=== PATIENT | female | born 1965 | race Caucasian/White ===

== ENCOUNTER 2020-07-05 09:50 | Emergency (ER) | payer OTHER ==
[~2020-07-05] VITALS: Ht 170.2 cm; Wt 81.7 kg
[~2020-07-05 09:50] MED LIST: ALBUTEROL INHAL17 GM IH; AVELOX400 MG PO; BENADRYL25 MG PO; CLARITIN-D 12 H1 TA1 PO; DIFLUCAN PO; FIORICET 50-321 EACH PO; GUAIFENESIN/COD10 ML PO; ISENTRESS100 MG PO; LEVOTHYROXIN0.088 MG PO; LIDOCAINE VISC100 ML MM; NEFAZODONE HCL250 MG PO; NORCO 5-325 TA1 EACH PO; PREDNISONE 10 M10 M1 PO; PREDNISONE 20 M20 MG PO; PROAIR HFA8.5 GM INH; PROVENTIL HFA6.7 G1 INH; RALTEGRAVIR; SYNTHROID; SYNTHROID100 MCG PO; TESSALON PERLE100 MG PO; TRIAMCINOLONE A15 G1 TP; TRUVADA1 EAC1; TRUVADA1 EAC1 PO; ULTRAM 50MG TAB50 MG PO; XANAX 0.25 MG0.25 MG PO; XANAX 0.5 MG0.5 M1 PO; ZPAK PO
[2020-07-05 11:11] LABS: HEMATOCRIT 39.7 % (37.0-47.0); HEMOGLOBIN 13.1 gm/dL (12.0-15.0); MCH 28.7 pg (26.0-34.0); PLATELET COUNT 327 thou/uL (150-400); RBC 4.56 mil/uL (4.20-5.00); WBC 6.8 thou/uL (4.0-11.0)
[2020-07-05 11:33] LABS: ANION GAP 9 mmol/L (7-16); BUN 12 mg/dL (7-18); CHLORIDE 105 mmol/L (98-107); CO2 28 mmol/L (21-32); CREATININE 0.9 mg/dL (0.6-1.0); GLUCOSE 115 mg/dL (74-106); SODIUM 142 mmol/L (136-145)
[2020-07-05 11:42] LABS: TROPONIN-I <0.06 ng/mL (<0.06)
--- NOTE | 2020-07-05 11:44 | EKG ---
[address] [address] ELECTROCARDIOGRAM REPORT Name: DAIJA FRYSKIP COLLADO Room #: REG Yong#: [id number] Admission: 07/05/20 Attend Phys: Discharge: Date of : 63 Report #: [id number] [facility] ED Test Date: 2020-07-05 Test Time: 10:11:22 Pat Name: TRINY FRY Department: Room: Gender: F Cpr Instructor: anneliese : 1965 Requested By: Adry Saleh Order Number: [id number] MD: Siva Marcos Measurements Intervals [place] Rate: 86 P: 79 TN: 151 QRS: 28 QRSD: 98 T: 31 QT: 357 QTc: 427 Interpretive Statements Sinus rhythm Compared to ECG 09/25/2013 06:07:02 No significant changes Electronically Signed On 07-05-2020 11:44:32 CHANNEL SPECIALIST by Siva Marcos [email or web address] <ELECTRONICALLY SIGNED> By: Siva Marcos MD, [facility] 07/05/20 1144 1011 1011 Siva Marcos MD, FACC /EPI
[2020-07-05] MEDS ORDERED: DOXYCYCLINE 10100 MG PO (11:51)
[2020-07-05] MEDS ORDERED: PROAIR HFA8.5 GM INH (11:51)
[2020-07-05] MEDS ORDERED: PREDNISONE 10 M10 MG PO (11:51)
[2020-07-05 12:36] VITALS: BP 138/65
[2020-07-05 12:49] LABS: ABSOLUTE NEUTROPHILS 3.3 thou/uL (1.4-8.2); PLATELET ESTIMATE NORMAL
== END 2020-07-05 12:36 | disposition home or self-care (01) ==
LOC: ER 09:50
PROVIDERS: Emergency Medicine
DX: J45.901 Unspecified asthma with (acute) exacerbation (principal); R21 Rash and other nonspecific skin eruption; E03.9 Hypothyroidism, unspecified; Z79.899 Other long term (current) drug therapy; Z88.0 Allergy status to penicillin; Z88.2 Allergy status to sulfonamides; Z88.8 Allergy status to other drugs, medicaments and biological substances; Z20.822 Contact with and (suspected) exposure to COVID-19

== ENCOUNTER 2020-08-10 18:24 | Emergency (ER) | payer OTHER ==
[~2020-08-10] VITALS: Ht 167.6 cm; Wt 93.0 kg
[~2020-08-10 18:24] MED LIST changes: +DOXYCYCLINE 10100 MG PO; +PREDNISONE 10 M10 MG PO
[2020-08-10 19:34] LABS: ABSOLUTE NEUTROPHILS 5.2 thou/uL (1.4-8.2); BASOPHILS 1.1 % (0.0-2.0); EOSINOPHILS 14.1 % (0.0-3.0); HEMATOCRIT 39.5 % (37.0-47.0); HEMOGLOBIN 13.1 gm/dL (12.0-15.0); LYMPHOCYTES 22.7 % (24.0-44.0); MCH 28.8 pg (26.0-34.0); MCHC 33.2 g/dL (28.0-37.0); MONOCYTES 10.5 % (1.0-8.0); PLATELET COUNT 315 thou/uL (150-400); POLYS 51.6 % (36.0-66.0); RBC 4.54 mil/uL (4.20-5.00); RDW 14.9 % (10.5-14.5); WBC 10.1 thou/uL (4.0-11.0)
[2020-08-10 19:38] LABS: ANION GAP 10 mmol/L (7-16); BUN 12 mg/dL (7-18); CALCIUM 9.5 mg/dL (8.5-10.1); CHLORIDE 106 mmol/L (98-107); CO2 25 mmol/L (21-32); GLUCOSE 133 mg/dL (74-106); POTASSIUM 4.2 mmol/L (3.5-5.1); SODIUM 141 mmol/L (136-145)
[2020-08-10 19:48] LABS: ALBUMIN 3.8 g/dL (3.4-5.0); SGOT 22 U/L (15-37); SGPT 23 U/L (14-59); TOTAL BILIRUBIN 0.5 mg/dL (0.2-1.0); TOTAL PROTEIN 7.9 g/dL (6.4-8.2); TROPONIN-I <0.06 ng/mL (<0.06)
[2020-08-10] MEDS ORDERED: PREDNISONE 10 M10 M1 PO (21:23)
[2020-08-10] MEDS ORDERED: ZPAK PO (21:23)
[2020-08-10] MEDS ORDERED: PROAIR HFA8.5 GM INH (21:23)
[2020-08-10 21:33] VITALS: BP 127/66
--- NOTE | 2020-08-11 07:02 | EKG ---
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 08/11/20 0702 1859 1859 Siva Marcos MD, FACC /EPI
== END 2020-08-10 21:36 | disposition home or self-care (01) ==
LOC: ER 18:24
PROVIDERS: Physician Assistant
DX: J45.901 Unspecified asthma with (acute) exacerbation (principal); E03.9 Hypothyroidism, unspecified; Z21 Asymptomatic human immunodeficiency virus [HIV] infection status; Z79.899 Other long term (current) drug therapy; Z88.0 Allergy status to penicillin; Z88.2 Allergy status to sulfonamides; Z88.8 Allergy status to other drugs, medicaments and biological substances

== ENCOUNTER 2020-09-09 20:15 | Emergency (ER) | payer OTHER ==
[~2020-09-09] VITALS: Ht 167.6 cm; Wt 90.7 kg
[2020-09-09 21:03] LABS: HEMATOCRIT 41.4 % (37.0-47.0); HEMOGLOBIN 13.6 gm/dL (12.0-15.0); MCH 29.1 pg (26.0-34.0); MCHC 32.9 g/dL (28.0-37.0); MCV 88.7 fL (80.0-100.0); RBC 4.67 mil/uL (4.20-5.00); RDW 15.8 % (10.5-14.5); WBC 5.6 thou/uL (4.0-11.0)
[2020-09-09 21:13] LABS: CALCIUM 9.6 mg/dL (8.5-10.1); CREATININE 1.1 mg/dL (0.6-1.0); POTASSIUM 3.8 mmol/L (3.5-5.1)
[2020-09-09 21:20] LABS: TOTAL BILIRUBIN 0.4 mg/dL (0.2-1.0); TOTAL PROTEIN 8.2 g/dL (6.4-8.2)
[2020-09-09] MEDS ORDERED: IPRAT-ALBUT 0.5-3 ML NEB ×2 (21:21→22:47)
[2020-09-09] MEDS ORDERED: PREDNISONE 10 M10 M1 PO ×2 (21:21→22:47)
[2020-09-09] MEDS ORDERED: PULMICORT FLE180 MCG INH ×2 (21:22→22:47)
[2020-09-09 23:15] VITALS: BP 130/59
[2020-09-10] MEDS ORDERED: PULMICORT FLE180 MCG INH ×2 (12:04→17:25)
== END 2020-09-09 23:16 | disposition home or self-care (01) ==
LOC: ER 20:15
PROVIDERS: Nurse Practitioner Family
DX: J45.901 Unspecified asthma with (acute) exacerbation (principal); E03.9 Hypothyroidism, unspecified; Z88.0 Allergy status to penicillin; Z88.1 Allergy status to other antibiotic agents; Z88.8 Allergy status to other drugs, medicaments and biological substances; Z79.899 Other long term (current) drug therapy

== ENCOUNTER 2020-10-05 09:44 | Emergency (ER) | payer OTHER ==
[~2020-10-05] VITALS: Ht 170.2 cm; Wt 90.7 kg
[~2020-10-05 09:44] MED LIST changes: +IPRAT-ALBUT 0.5-3 ML NEB; +PULMICORT FLE180 MCG INH
[2020-10-05 11:00] LABS: BE(vivo) -1.7 mmol/L (-2 to +3); HCO3 22.5 mmol/L (22.0-26.0); PCO2 36.6 mmHg (35.0-45.0); PO2 63.7 mmHg (80.0-100.0); pH 7.407 (7.360-7.450); sO2 92.6 % (92.0-98.0)
[2020-10-05 11:18] LABS: RBC 4.48 mil/uL (4.20-5.00)
[2020-10-05 11:20] LABS: HEMATOCRIT 39.7 % (37.0-47.0); HEMOGLOBIN 13.2 gm/dL (12.0-15.0); MCH 29.5 pg (26.0-34.0); MCHC 33.3 g/dL (28.0-37.0); MCV 88.5 fL (80.0-100.0); PLATELET COUNT 270 thou/uL (150-400); RDW 16.1 % (10.5-14.5); WBC 6.6 thou/uL (4.0-11.0)
[2020-10-05 11:27] LABS: CALCIUM 9.4 mg/dL (8.5-10.1); POTASSIUM 3.9 mmol/L (3.5-5.1)
[2020-10-05 11:33] LABS: ALBUMIN 3.8 g/dL (3.4-5.0); TOTAL BILIRUBIN 0.5 mg/dL (0.2-1.0); TOTAL PROTEIN 7.8 g/dL (6.4-8.2)
[2020-10-05 11:47] VITALS: BP 168/78
--- NOTE | 2020-10-05 13:03 | EKG ---
[place] [address] [place] [address] ELECTROCARDIOGRAM REPORT Name: LISANDRATRINY COLLADO [facility] #: [facility] [id number] Admission: 10/05/20 Attend Phys: Discharge: Date of : 63 Report #: [id number] [facility] ED Test Date: 2020-10-05 Test Time: 09:51:19 Pat Name: TRINY FRY Department: Room: Gender: F Retail Manager: SONIDO : 1965 Requested By: Angel Kendall Order Number: [id number] MD: Siva Marcos Measurements Intervals [place] Rate: 114 P: 85 [place]: 150 QRS: 74 QRSD: 81 T: 59 QT: 314 QTc: 433 Interpretive Statements Sinus tachycardia Consider right atrial enlargement Compared to ECG 08/10/2020 18:59:57 Sinus rhythm no longer present Electronically Signed On 10-05-2020 13:02:44 CDT by Siva Marcos [email or web address] <ELECTRONICALLY SIGNED> By: Siva Marcos MD, [facility] 10/05/20 1302 0951 0951 Siva Marcos MD, FACC /EPI
[2020-10-05] MEDS ORDERED: PREDNISONE 20 M20 M1 PO (13:08)
[2020-10-05] MEDS ORDERED: ZITHROMAX250 MG PO (13:08)
[2020-10-05] MEDS ORDERED: PROAIR HFA8.5 GM INH (13:08)
[2020-10-05 13:56] LABS: ANISOCYTOSIS 1+
== END 2020-10-05 13:44 | disposition home or self-care (01) ==
LOC: ER 09:44
PROVIDERS: Emergency Medicine
DX: J20.9 Acute bronchitis, unspecified (principal); Z20.822 Contact with and (suspected) exposure to COVID-19; J45.909 Unspecified asthma, uncomplicated; E03.9 Hypothyroidism, unspecified; Z21 Asymptomatic human immunodeficiency virus [HIV] infection status; Z88.0 Allergy status to penicillin; Z88.2 Allergy status to sulfonamides; Z88.8 Allergy status to other drugs, medicaments and biological substances

== ENCOUNTER 2020-10-16 12:19 | Emergency (ER) | payer OTHER ==
[~2020-10-16] VITALS: Ht 170.2 cm; Wt 90.7 kg
[~2020-10-16 12:19] MED LIST changes: +PREDNISONE 20 M20 M1 PO; +ZITHROMAX250 MG PO
[2020-10-16 12:57] LABS: ABSOLUTE NEUTROPHILS 4.3 thou/uL (1.4-8.2); BASOPHILS 0.5 % (0.0-2.0); EOSINOPHILS 15.6 % (0.0-3.0); HEMATOCRIT 41.5 % (37.0-47.0); HEMOGLOBIN 13.6 gm/dL (12.0-15.0); LYMPHOCYTES 11.9 % (24.0-44.0); MCH 29.2 pg (26.0-34.0); MCHC 32.7 g/dL (28.0-37.0); MCV 89.3 fL (80.0-100.0); MONOCYTES 9.4 % (1.0-8.0); PLATELET COUNT 377 thou/uL (150-400); POLYS 62.6 % (36.0-66.0); RBC 4.65 mil/uL (4.20-5.00); RDW 16.5 % (10.5-14.5); WBC 6.9 thou/uL (4.0-11.0)
[2020-10-16 13:04] LABS: ANION GAP 7 mmol/L (7-16); BUN 12 mg/dL (7-18); CALCIUM 9.4 mg/dL (8.5-10.1); CHLORIDE 108 mmol/L (98-107); CO2 28 mmol/L (21-32); GLUCOSE 105 mg/dL (74-106); SODIUM 143 mmol/L (136-145)
[2020-10-16 13:14] LABS: ALBUMIN 3.8 g/dL (3.4-5.0); SGOT 25 U/L (15-37); SGPT 26 U/L (14-59); TOTAL BILIRUBIN 0.4 mg/dL (0.2-1.0); TOTAL PROTEIN 7.8 g/dL (6.4-8.2); TROPONIN-I <0.06 ng/mL (<0.06)
[2020-10-16] MEDS ORDERED: MEDROLDOSEPACK PO (14:28)
[2020-10-16] MEDS ORDERED: DOXYCYCLINE 10100 MG PO (14:28)
[2020-10-16] MEDS ORDERED: CODEINE-GUAIFE120 ML PO (14:28)
[2020-10-16] MEDS ORDERED: PROAIR HFA8.5 GM INH (14:28)
[2020-10-16 14:42] VITALS: BP 142/81
--- NOTE | 2020-10-17 07:23 | EKG ---
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: makenzie : 1965 Requested By: Jose Bernstein Order Number: [id number] MD: Siva Marcos Measurements Intervals [place] Rate: 98 P: 92 [place]: 128 QRS: 66 QRSD: 139 T: 48 QT: 333 QTc: 426 Interpretive Statements Sinus rhythm Nonspecific intraventricular conduction delay Compared to ECG 10/05/2020 09:51:19 Intraventricular conduction delay now present Sinus tachycardia no longer present Electronically Signed On 10-17-2020 7:23:37 CDT by Siva Marcos [email or web address] <ELECTRONICALLY SIGNED> By: Siva Marcos MD, [facility] 10/17/20 0723 D: 06/1246 124 Siva Marcos MD, FACC /EPI
== END 2020-10-16 14:42 | disposition home or self-care (01) ==
LOC: ER 12:19
PROVIDERS: Emergency Medicine
DX: J45.909 Unspecified asthma, uncomplicated (principal); Z20.822 Contact with and (suspected) exposure to COVID-19; E03.9 Hypothyroidism, unspecified; Z88.0 Allergy status to penicillin; Z88.2 Allergy status to sulfonamides; Z88.1 Allergy status to other antibiotic agents; Z88.8 Allergy status to other drugs, medicaments and biological substances; Z87.891 Personal history of nicotine dependence

== ENCOUNTER 2020-10-30 14:09 | Emergency (ER) | payer OTHER ==
[~2020-10-30] VITALS: Ht 167.6 cm; Wt 93.0 kg
[~2020-10-30 14:09] MED LIST changes: +CODEINE-GUAIFE120 ML PO; +MEDROLDOSEPACK PO
[2020-10-30 15:01] LABS: HEMATOCRIT 39.9 % (37.0-47.0); HEMOGLOBIN 12.9 gm/dL (12.0-15.0); MCH 29.4 pg (26.0-34.0); MCHC 32.3 g/dL (28.0-37.0); MCV 90.8 fL (80.0-100.0); PLATELET COUNT 318 thou/uL (150-400); RBC 4.39 mil/uL (4.20-5.00); RDW 16.4 % (10.5-14.5); WBC 7.9 thou/uL (4.0-11.0)
[2020-10-30 15:08] LABS: ANION GAP 9 mmol/L (7-16); BUN 11 mg/dL (7-18); CALCIUM 9.4 mg/dL (8.5-10.1); CHLORIDE 110 mmol/L (98-107); CO2 25 mmol/L (21-32); CREATININE 0.9 mg/dL (0.6-1.0); GLUCOSE 91 mg/dL (74-106); POTASSIUM 4.5 mmol/L (3.5-5.1); SODIUM 144 mmol/L (136-145)
[2020-10-30 15:17] LABS: TROPONIN-I <0.06 ng/mL (<0.06)
[2020-10-30 15:33] LABS: PLATELET ESTIMATE NORMAL
[2020-10-30] MEDS ORDERED: GUAIFEN-CODEINE10 ML PO (17:06)
[2020-10-30] MEDS ORDERED: PROAIR HFA8.5 GM INH (17:06)
[2020-10-30] MEDS ORDERED: PREDNISONE 20 M20 MG PO (17:06)
[2020-10-30] MEDS ORDERED: DOXYCYCLINE 10100 MG PO (17:13)
[2020-10-30 17:25] VITALS: BP 129/65
--- NOTE | 2020-10-31 07:13 | EKG ---
[place] [address] [facility] [place] [address] ELECTROCARDIOGRAM REPORT Name: SaulTRINY COLLADO Room #: DEP Yong#: [id number] Admission: 10/30/20 Attend Phys: Discharge: 10/30/20 Date of : 63 Report #: [id number] [facility] ED Test Date: 2020-10-30 Test Time: 14:17:56 Pat Name: TRINY FRY Department: Room: Gender: F Slide Machine Tender: AVANI : 1965 Requested By: Christiano Roche Order Number: [id number] MD: Siva Marcos Measurements Intervals [place] Rate: 82 P: 79 [place]: 156 QRS: 35 QRSD: 87 T: 45 QT: 355 QTc: 415 Interpretive Statements Sinus rhythm Compared to ECG 10/16/2020 12:47:25 Intraventricular conduction delay no longer present Electronically Signed On 10-31-2020 7:13:22 CDT by Siva Marcos [email or web address] <ELECTRONICALLY SIGNED> By: Siva Marcos MD, [facility] 10/31/20 0713 1417 1417 Siva Marcos MD, FACC /EPI
== END 2020-10-30 17:28 | disposition home or self-care (01) ==
LOC: ER 14:09
PROVIDERS: Nurse Practitioner
DX: J44.1 Chronic obstructive pulmonary disease with (acute) exacerbation (principal); Z20.822 Contact with and (suspected) exposure to COVID-19; E03.9 Hypothyroidism, unspecified; Z88.0 Allergy status to penicillin; Z88.2 Allergy status to sulfonamides; Z88.1 Allergy status to other antibiotic agents; Z88.8 Allergy status to other drugs, medicaments and biological substances

== ENCOUNTER 2020-11-19 00:37 | Emergency (ER) | payer OTHER ==
[~2020-11-19] VITALS: Ht 170.2 cm; Wt 95.3 kg
[~2020-11-19 00:37] MED LIST changes: +GUAIFEN-CODEINE10 ML PO
[2020-11-19 01:25] LABS: BASOPHILS 1.3 % (0.0-2.0); EOSINOPHILS 10.6 % (0.0-3.0); HEMATOCRIT 37.5 % (37.0-47.0); HEMOGLOBIN 12.5 gm/dL (12.0-15.0); LYMPHOCYTES 20.3 % (24.0-44.0); MCH 29.6 pg (26.0-34.0); MCHC 33.4 g/dL (28.0-37.0); MCV 88.7 fL (80.0-100.0); MONOCYTES 12.2 % (1.0-8.0); PLATELET COUNT 279 thou/uL (150-400); POLYS 55.6 % (36.0-66.0); RBC 4.23 mil/uL (4.20-5.00); WBC 5.3 thou/uL (4.0-11.0)
[2020-11-19 01:26] LABS: ANION GAP 10 mmol/L (7-16); BUN 11 mg/dL (7-18); CALCIUM 9.4 mg/dL (8.5-10.1); CHLORIDE 107 mmol/L (98-107); CO2 26 mmol/L (21-32); GLUCOSE 103 mg/dL (74-106); POTASSIUM 3.8 mmol/L (3.5-5.1); SODIUM 143 mmol/L (136-145)
[2020-11-19 01:36] LABS: ALBUMIN 3.6 g/dL (3.4-5.0); SGOT 22 U/L (15-37); SGPT 25 U/L (30-65); TOTAL BILIRUBIN 0.3 mg/dL (0.2-1.0); TOTAL PROTEIN 7.5 g/dL (6.4-8.2); TROPONIN-I <0.06 ng/mL (<0.06)
[2020-11-19] MEDS ORDERED: PREDNISONE 20 M20 MG PO (03:00)
[2020-11-19] MEDS ORDERED: AZITHROMYCIN 2250 MG PO (03:00)
[2020-11-19] MEDS ORDERED: PROAIR HFA8.5 GM INH (03:03)
[2020-11-19 04:06] VITALS: BP 158/72
--- NOTE | 2020-11-20 14:28 | EKG ---
[place] [address] [address] [facility] [place] [address] ELECTROCARDIOGRAM REPORT Name: TRINY FRY TOBIAS Room #: [facility]P [facility] [id number] Admission: 11/19/20 Attend Phys: Discharge: 11/19/20 Date of : 63 Report #: [id number] [facility] ED Test Date: 2020-11-19 Test Time: 01:20:56 Pat Name: TRINY FRY Department: Room: Gender: F Ham Sawyer: : 1965 Requested By: Kota Youssef Order Number: [id number] MD: Omar Fabian Measurements Intervals [place] Rate: 102 P: 69 NM: 144 QRS: 37 QRSD: 88 T: 32 QT: 324 QTc: 423 Interpretive Statements Sinus tachycardia Otherwise no significant abnormality Compared to ECG 10/30/2020 14:17:56 No significant changes Electronically Signed On 11-20-2020 14:28:17 CDT by Omar Fabian [email or web address] <ELECTRONICALLY SIGNED> By: Omar Fabian MD, [facility] 11/20/20 1428 012 0120 Omar Fabian MD, FACC /EPI
== END 2020-11-19 04:00 | disposition home or self-care (01) ==
LOC: ER 00:37
PROVIDERS: Emergency Medicine
DX: J40 Bronchitis, not specified as acute or chronic (principal); J45.909 Unspecified asthma, uncomplicated; B34.9 Viral infection, unspecified; B20 Human immunodeficiency virus [HIV] disease; E03.9 Hypothyroidism, unspecified; F41.9 Anxiety disorder, unspecified; Z87.891 Personal history of nicotine dependence; Z20.822 Contact with and (suspected) exposure to COVID-19; Z88.1 Allergy status to other antibiotic agents; Z88.0 Allergy status to penicillin

== ENCOUNTER 2020-12-16 18:47 | Inpatient (IN) | payer OTHER ==
[~2020-12-16] VITALS: Ht 167.6 cm; Wt 97.5 kg
[~2020-12-16 18:47] MED LIST changes: +AZITHROMYCIN 2250 MG PO
[2020-12-16 18:58] VITALS: BP 159/96
[2020-12-16 20:00] LABS: ABSOLUTE NEUTROPHILS 12.1 thou/uL (1.4-8.2); BASOPHILS 0.1 % (0.0-2.0); HEMATOCRIT 40.9 % (37.0-47.0); HEMOGLOBIN 13.4 gm/dL (12.0-15.0); LYMPHOCYTES 4.4 % (24.0-44.0); MCH 29.6 pg (26.0-34.0); MCHC 32.8 g/dL (28.0-37.0); MCV 90.2 fL (80.0-100.0); MONOCYTES 4.9 % (1.0-8.0); PLATELET COUNT 363 thou/uL (150-400); POLYS 90.6 % (36.0-66.0); RBC 4.54 mil/uL (4.20-5.00); RDW 16.3 % (10.5-14.5); WBC 13.3 thou/uL (4.0-11.0)
[2020-12-16 20:04] LABS: ANION GAP 7 mmol/L (7-16); BUN 26 mg/dL (7-18); CALCIUM 9.8 mg/dL (8.5-10.1); CHLORIDE 106 mmol/L (98-107); CO2 29 mmol/L (21-32); CREATININE 1.2 mg/dL (0.6-1.0); GLUCOSE 113 mg/dL (74-106); POTASSIUM 4.7 mmol/L (3.5-5.1); SODIUM 142 mmol/L (136-145)
[2020-12-16 20:15] LABS: ALBUMIN 3.8 g/dL (3.4-5.0); SGOT 21 U/L (15-37); SGPT 31 U/L (14-59); TOTAL BILIRUBIN 0.3 mg/dL (0.2-1.0); TOTAL PROTEIN 7.7 g/dL (6.4-8.2); TROPONIN-I <0.06 ng/mL (<0.06)
[2020-12-16] MEDS ORDERED: ALBUTEROL2.5 MG/3 M INH (20:54)
[2020-12-16] MEDS ORDERED: MEDROLDOSEPACK PO (20:54)
[2020-12-17 05:25] LABS: HEMATOCRIT 39.4 % (37.0-47.0); MCH 29.8 pg (26.0-34.0); MCHC 33.1 g/dL (28.0-37.0); MCV 90.1 fL (80.0-100.0); RBC 4.37 mil/uL (4.20-5.00); RDW 15.8 % (10.5-14.5); WBC 11.4 thou/uL (4.0-11.0)
[2020-12-17 05:28] LABS: CALCIUM 9.3 mg/dL (8.5-10.1); CREATININE 1.1 mg/dL (0.6-1.0); POTASSIUM 4.5 mmol/L (3.5-5.1)
[2020-12-17 06:52] VITALS: BP 110/54
[2020-12-17 07:25] VITALS: BP 110/54
[2020-12-17 07:41] VITALS: BP 151/81
--- NOTE | 2020-12-17 09:53 | EKG ---
[place] [address] [facility] [place] [address] ELECTROCARDIOGRAM REPORT Name: TRINY FRY TOBIAS Room #: 441-P ADM IN M.R.#: [id number] Admission: 12/16/20 Attend Phys: Gustavo Farmer Discharge: Date of : 63 Report #: [id number] [facility] ED Test Date: 2020-12-16 Test Time: 18:59:23 Pat Name: TRINY FRY Department: Room: [facility] Gender: F Police Magistrate: : 1965 Requested By: Jose Bernstein Order Number: [id number] MD: Jacek Ribeiro Measurements Intervals [place] Rate: 79 P: 81 MD: 127 QRS: 41 QRSD: 78 T: 51 QT: 341 QTc: 391 Interpretive Statements Sinus rhythm Compared to ECG 11/19/2020 01:20:56 Sinus tachycardia no longer present Electronically Signed On 12-17-2020 9:53:04 CDT by Jacek Ribeiro [email or web address] <ELECTRONICALLY SIGNED> By: Jacek Ribeiro MD 12/17/20 0953 1859 1859 Jacek Ribeiro MD /EPI
--- NOTE | 2020-12-17 11:58 | NUR ---
ASSUMED PT CARE FROM ED AT 0730. PT IS ALERT & ORIENTED X4. PT HAS IV SITE ON L WRIST 20 GAUGE SALINE LOCKED. PT IS ON ROOM AIR. CALLED PT DAUGHTER AND FIANCE THAT PT IS IN HER ROOM. FINISHED ADMISSION. CALLED RT REGARDING BREATHING TREATMENT. PT C/O OF PAIN AND SORE THROAT AND GIVEN PAIN AND SORE THROAT MEDICATION PER PT REQUEST. PT ON THE BED, BED ON THE LOWEST POSITION, SIDE RAILS UP, CALL LIGHT WITHIN REACH. WILL CONTINUE TO MONITOR PT. FOLLOW POC.
[2020-12-17 15:00] VITALS: BP 148/69
[2020-12-17] MEDS ORDERED: PREDNISONE 20 M20 MG PO (17:52)
[2020-12-17 20:06] VITALS: BP 139/80
--- NOTE | 2020-12-18 05:00 | NUR ---
PT STATES FEELING BETTER. CONTINUES TO HAVE WHEEZING. RT TREATMENTS ON SCHEDULE. TRAMADOL GIVEN FOR HEADACHE-SHE OBTAINED RELIEF-PROGRESSING TOWARDS CARE GOALS.
[2020-12-18 07:38] VITALS: BP 140/74
--- NOTE | 2020-12-18 10:02 | NUR ---
ASSUMED PT CARE THIS AM. PT IS ALERT & ORIENTED X4 BUT ANXIOUS AT TIMES. PT HAS IV SITE ON L WRIST 20 GAUGE SALINE LOCKED. PT IS ON ROOM AIR WITH 94% O2 SAT. GIVEN SCHEDULED MEDICATION PER ORDERED. PT TOLERATED DIET AND MEDICATION WELL. NO C/O OF NAUSEA AND VOMITING. PT ON THE BED SLEEPING, BED ON THE LOWEST POSITION, SIDE RAILS UP, CALL LIGHT WITHIN REACH. WILL CONTINUE TO MONITOR PT. FOLLOW POC.
[2020-12-18] MEDS ORDERED: ALPRAZOLAM 0.50.5 MG PO (12:09)
[2020-12-18] MEDS ORDERED: ULTRAM 50MG TAB50 MG PO (12:09)
[2020-12-18] MEDS ORDERED: DOXYCYCLINE 10100 MG PO (12:09)
[2020-12-18] MEDS ORDERED: MUCINEX600 MG PO (12:09)
[2020-12-18 13:25] VITALS: BP 140/74
== END 2020-12-18 14:15 | disposition home or self-care (01) | DRG 192 ==
LOC: ER 18:47 → EROBS 21:26 → 4S 12-17 07:23
PROVIDERS: Emergency Medicine; Nurse Practitioner Family; ADMIT Hospitalist; ATTEND Hospitalist
DX: J44.1 Chronic obstructive pulmonary disease with (acute) exacerbation (principal); Z21 Asymptomatic human immunodeficiency virus [HIV] infection status; E03.9 Hypothyroidism, unspecified; F41.9 Anxiety disorder, unspecified; Z20.822 Contact with and (suspected) exposure to COVID-19; Z79.899 Other long term (current) drug therapy; Z79.51 Long term (current) use of inhaled steroids; Z88.0 Allergy status to penicillin; Z88.2 Allergy status to sulfonamides; Z88.8 Allergy status to other drugs, medicaments and biological substances
CPT/HCPCS: 10195

== ENCOUNTER 2021-01-13 10:00 | Emergency (ER) | payer OTHER ==
[~2021-01-13] VITALS: Ht 167.6 cm; Wt 97.5 kg
[~2021-01-13 10:00] MED LIST changes: +ALBUTEROL2.5 MG/3 M INH; +ALPRAZOLAM 0.50.5 MG PO; +MUCINEX600 MG PO
[2021-01-13] MEDS ORDERED: PREDNISONE 10 M10 MG PO (12:19)
[2021-01-13 12:25] VITALS: BP 117/86
--- NOTE | 2021-01-13 12:40 | EKG ---
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 01/13/21 1239 1016 1016 Omar Fabian MD, FAC /EPI
[2021-01-14] MEDS ORDERED: VISTARIL 25 MG25 M1 PO (12:24)
== END 2021-01-13 12:25 | disposition home or self-care (01) ==
LOC: ER 10:00
DX: J44.1 Chronic obstructive pulmonary disease with (acute) exacerbation (principal); F41.9 Anxiety disorder, unspecified; E03.9 Hypothyroidism, unspecified; J45.909 Unspecified asthma, uncomplicated; F17.210 Nicotine dependence, cigarettes, uncomplicated; Z88.0 Allergy status to penicillin; Z88.2 Allergy status to sulfonamides; Z88.1 Allergy status to other antibiotic agents

== ENCOUNTER 2021-01-14 09:43 | Emergency (ER) | payer OTHER ==
[~2021-01-14] VITALS: Ht 167.6 cm; Wt 97.5 kg
[2021-01-14 10:43] LABS: ABSOLUTE NEUTROPHILS 5.6 thou/uL (1.4-8.2); BASOPHILS 0.2 % (0.0-2.0); EOSINOPHILS 0.6 % (0.0-3.0); HEMATOCRIT 40.6 % (37.0-47.0); HEMOGLOBIN 13.8 gm/dL (12.0-15.0); MCHC 33.9 g/dL (28.0-37.0); MCV 88.6 fL (80.0-100.0); MONOCYTES 6.8 % (1.0-8.0); PLATELET COUNT 346 thou/uL (150-400); POLYS 79.4 % (36.0-66.0); RBC 4.58 mil/uL (4.20-5.00); RDW 15.5 % (10.5-14.5); WBC 7.1 thou/uL (4.0-11.0)
[2021-01-14 10:53] LABS: CALCIUM 9.8 mg/dL (8.5-10.1); POTASSIUM 3.7 mmol/L (3.5-5.1)
--- NOTE | 2021-01-14 11:22 | EKG ---
[place] [address] [facility] [place] [address] ELECTROCARDIOGRAM REPORT Name: TRINY FRY TOBIAS Room #: REG [place]#: [id number] Admission: 01/14/21 Attend Phys: Discharge: Date of : 63 Report #: [id number] [facility] ED Test Date: 2021-01-14 Test Time: 10:44:47 Pat Name: TRINY FRY Department: Room: Gender: F Hospital Medicine Director: moni fox : 1965 Requested By: Richard Kerr Order Number: [id number] MD: Jacek Ribeiro Measurements Intervals [place] Rate: 69 P: 72 [place]: 132 QRS: 29 QRSD: 86 T: 30 QT: 370 QTc: 397 Interpretive Statements Sinus rhythm Compared to ECG 01/13/2021 10:16:22 Poor R-wave progression no longer present Electronically Signed On 01-14-2021 11:21:54 CDT by Jaeck Ribeiro [email or web address] <ELECTRONICALLY SIGNED> By: Jacek Ribeiro MD 01/14/21 1121 1044 1044 Jacek Ribeiro MD /EPI
[2021-01-14 12:17] VITALS: BP 164/85
[2021-01-14] MEDS ORDERED: VISTARIL 25 MG25 M1 PO (12:24)
== END 2021-01-14 12:35 | disposition home or self-care (01) ==
LOC: ER 09:43
PROVIDERS: Student in an Organized Health Care Education/Training Program
DX: F41.9 Anxiety disorder, unspecified (principal); E03.9 Hypothyroidism, unspecified; J45.909 Unspecified asthma, uncomplicated; Z87.891 Personal history of nicotine dependence; Z21 Asymptomatic human immunodeficiency virus [HIV] infection status; Z88.0 Allergy status to penicillin; Z88.2 Allergy status to sulfonamides; Z88.5 Allergy status to narcotic agent